=== PATIENT | female | born 1990 | race Caucasian/White ===

== ENCOUNTER → 2021-09-27 11:04 | Outpatient (BNVA) | payer SELFPAY | DX: Z02.0 Encounter for examination for admission to educational institution (principal) ==

== ENCOUNTER 2023-08-31 14:53 | Outpatient (REF) | payer OTHER, SELFPAY ==
--- NOTE | 2023-08-31 14:56 | EMG_ITS ---
Chief complaint: Right hand numbness, right wrist pain Reason for referral: Evaluate for Carpal Tunnel Syndrome Referred by: Gregory FLORIAN Procedure done: Right upper extremity NCS/EMG Precautions and/or limitations: None The limb temperature was monitored continuously and remained between 32-36 degrees C during the performance of the NCS. Nerve Conduction Studies Anti Sensory Summary Table ?Stim Site NR Onset (ms) Norm Onset (ms) Peak (ms) Norm Peak (ms) O-P Amp (?V) Norm O-P Amp Site1 Site2 Delta-0 (ms) Dist (cm) Kurt (m/s) Norm Kurt (m/s) Right Median Anti Sensory (2nd Digit) Wrist ? 3.1 3.7 <3.6 32.8 >10 Wrist 2nd Digit 3.1 14.0 45 Right Radial Anti Sensory (Thumb) Forearm ? 1.2 1.7 <3.1 31.1 Forearm Thumb 1.2 0.0 Right Ulnar Anti Sensory (5th Digit) Wrist ? 2.3 2.9 <3.7 24.7 >15.0 Wrist 5th Digit 2.3 14.0 61 Motor Summary Table ?Stim Site NR Onset (ms) Norm Onset (ms) O-P Amp (mV) Norm O-P Amp iAmp (mV) Amp (1st) (%) Site1 Site2 Delta-0 (ms) Dist (cm) Kurt (m/s) Norm Kurt (m/s) Right Median Motor (Abd Poll Brev) Wrist ? 4.2 <3.9 8.8 >4.5 11.1 100.0 Elbow Wrist 3.7 20.0 54 >45 Elbow ? 7.9 8.5 10.8 96.6 Right Ulnar Motor (Abd Dig Minimi) Wrist ? 2.6 <3.0 6.6 >5 8.3 100.0 B Elbow Wrist 2.2 18.0 82 >45 B Elbow ? 4.8 6.7 8.6 101.5 A Elbow B Elbow 1.8 10.0 56 >45 A Elbow ? 6.6 6.9 9.0 104.5 EMG ?Side Muscle Nerve Root Ins Act Fibs Psw Amp Dur Poly Recrt Int Pat Comment Right 1stDorInt Ulnar C8-T1 Nml Nml Nml Nml Nml 0 Nml Complete Right FlexCarRad Median C6-7 Nml Nml Nml Nml Nml 0 Nml Complete Right Biceps Musculocut C5-6 Nml Nml Nml Nml Nml 0 Nml Complete Right Triceps Radial C6-7-8 Nml Nml Nml Nml Nml 0 Nml Complete Right Deltoid Axillary C5-6 Nml Nml Nml Nml Nml 0 Nml Complete FINDINGS: Right median motor nerve showed prolonged distal latency, normal amplitude and normal conduction velocity. Right median sensory nerve showed prolonged peak latency. All other nerves tested were within normal. Concentric needle EMG was performed in selected muscles of the right upper extremity. Study did not reveal signs of electric abnormalities as shown in the table above. IMPRESSION: 1. This is an abnormal study. 2. There is electrodiagnostic evidence for right moderate-severe median neuropathy at the wrist, consistent with carpal tunnel syndrome. 3. There is no electrodiagnostic evidence for ulnar neuropathy, brachial plexopathy, or cervical radiculopathy. Thank you for your kind referral. Yeimy Crespo MD, ARON Board Certified, [place] [employer] (ABPMR) Board Certified, [place] [employer] Electro[employer] (ABEM) [place] [id number] [facility]
== END 2023-08-31 14:54 | disposition home or self-care (01) ==
LOC: HO.NEURO 14:53
PROVIDERS: Visit Provider Physician Assistant
DX: G56.01 Carpal tunnel syndrome, right upper limb (principal)
CPT/HCPCS: 95886; 95909

== ENCOUNTER → 2023-08-31 14:56 | Outpatient (BNV) | payer OTHER, SELFPAY | PROVIDERS: Visit Provider Physical Medicine & Rehabilitation | DX: G56.01 Carpal tunnel syndrome, right upper limb (principal) | CPT/HCPCS: 95886; 95909 ==